=== PATIENT | male | born 1945 | race Caucasian/White ===

== ENCOUNTER 2019-04-30 01:27 | Inpatient (IN) | payer MEDICAID ==
[~2019-04-30] VITALS: Ht 185.4 cm; Wt 84.8 kg
--- NOTE | 2019-04-30 01:30 | NUR ---
PT LIZ FROM [facility] C/C LEFT LOWER LEG NONHEALING WOUND. PT HAS SOILED BANDAGE AROUND L LEG. PT AOX4. NAD NOTED. RESP EVEN AND UNLABORED. PT IS ON THE MONITOR IN BED 12. WILL CONTINUE TO MONITOR.
--- NOTE | 2019-04-30 01:51 | NUR ---
PT REFUSING TO HAVE IV PLACED AND BLOOD DRAWN. AWARE.
[2019-04-30] MEDS ORDERED: CLINDAMYCIN HCL 150 MG CAPSULE PO ONE ×2 (02:00→02:15)
--- NOTE | 2019-04-30 02:24 | NUR ---
CLINDAMYCIN 450MG UNAVAILABLE IN EMERGENCY DEPARTMENT OMNICELL. MEDICATION RECEIVED FROM MAYURI.
[2019-04-30] MEDS ORDERED: HYDROCODONE/APAP 5/325MG 1 EACH TABLET PO PRN (02:30)
[2019-04-30] MEDS ORDERED: Z GUARD REMEDY 2 OZ OINT TP PRN (02:30)
[2019-04-30] MEDS ORDERED: ZOLPIDEM TARTRATE 5 MG TABLET PO PRN (02:30)
[2019-04-30] MEDS ORDERED: MAG HYDROX/AL HYDROX/SIMETH 30 ML UDC PO PRN (02:30)
[2019-04-30] MEDS ORDERED: MAGNESIUM HYDROXIDE 30 ML UDC PO PRN (02:30)
[2019-04-30] MEDS ORDERED: MORPHINE SULFATE INJ 2 MG/ML DISP.SYRIN IV PRN (02:30)
[2019-04-30] MEDS ORDERED: ONDANSETRON HCL/PF 4 MG/2 ML VIAL IVP PRN (02:30)
[2019-04-30] MEDS ORDERED: ACETAMINOPHEN 325 MG TABLET PO PRN (02:30)
--- NOTE | 2019-04-30 02:47 | NUR ---
MED SURG BED ASSIGNMENT 328-2
[2019-04-30] MEDS ORDERED: VANCOMYCIN 1 GM in IV D5W 250ml IV SCH (03:30)
--- NOTE | 2019-04-30 03:56 | NUR ---
REPORT GIVEN TO CORTEZ LARA FOR RYAN
[2019-04-30 04:10] VITALS: BP 123/69
--- NOTE | 2019-04-30 04:10 | NUR ---
MS MOTORCYCLE MAKER NOTES Received patient from ER via [facility] accompanied by 1 ER staff. Admitted to MS 328-1 under the service of Dr. Torres, with diagnosis of LLE Open Wound and Cellulitis. Assisted patient to bed comfortably. Admission routine done. Patient's belongings inventory completed by the assigned ELECTRICAL PROSPECTING OPERATOR. Patient refused skin assessment, photo, and vital signs. Explained to patient the benefits of the interventions, patient verbalized understanding but insisted to refused any interventions at this time. Patient preferred to be on his own clothing, refused to removed the shoes. Patient has no IV line present and refused blood drawn from ER. Kept patient on bed in comfortable position, offered blanket, kept the room cool and patient was comfortably asleep. On fall precautions, call light within easy reach. Will re-offer interventions later. Will continue to monitor accordingly.
[2019-04-30 05:00] VITALS: BP 123/69
--- NOTE | 2019-04-30 07:01 | NUR ---
MS RN CLOSING NOTES Patient asleep on bed on RA, no sob/respiratory distress noted. Patient was able to change into gown, upper extrimities partially cleaned but patient refused the rest of the interventions including photo and skin assessments. Patient requested for snacks, provided. Kept on bed comfortable. Call light within easy reach. Endorsed to the next shift.
--- NOTE | 2019-04-30 07:30 | NUR ---
RN MS NOTES PT IN BED, AWAKE, ALERT AND ORIENTED, EATING BREAKFAST, OFFERED TO START AND IV LINE, PT REFUSED, EXPLAINED THE NEED FOR IT, STILL REFUSED, STILL REFUSING BODY CHECK AT THIS TIME, REFUSED VITAL SIGNS AND LAB DRAW, DR. JOHNSON INFORMED.
[2019-04-30 08:00] VITALS: BP 141/70
[2019-04-30] MEDS: NICOTINE PATCH (21MG) 21 MG PATCH.TD24 TD SCH (09:01)
[2019-04-30 10:25] LABS: BASOPHILS % (AUTO) 0.3 % (0.0-2.0); EOSINOPHILS % (AUTO) 0.8 % (0.0-6.0); HEMATOCRIT 37 % (39-51); HEMOGLOBIN 11.9 g/dL (13.5-17.5); LYMPHOCYTES # (AUTO) 1.6 /CMM (0.8-4.8); LYMPHOCYTES % (AUTO) 16.9 % (20.0-44.0); MEAN CORPUSCULAR HGB CONC 33 g/dl (31.0-36.0); MEAN CORPUSCULAR VOLUME 86 fL (80-96); MONOCYTES # (AUTO) 0.6 /CMM (0.1-1.30); MONOCYTES % (AUTO) 6.1 % (2.0-12.0); NEUTROPHILS # (AUTO) 7.3 /CMM (1.8-8.9); NEUTROPHILS % (AUTO) 75.9 % (43.0-81.0); PLATELET COUNT (AUTO) 221 /CMM (150-450); RED BLOOD CELL COUNT(AUTO) 4.23 MIL/uL (4.5-6.0); WHITE BLOOD COUNT (AUTO) 9.6 K/uL (4.3-11.0)
[2019-04-30 10:41] LABS: ALBUMIN 2.6 g/dL (3.4-5.0); BILIRUBIN,DIRECT 0.1 mg/dL (0.0-0.2); BILIRUBIN,TOTAL 0.2 mg/dL (0.2-1.0); PHOSPHORUS 3.2 mg/dL (2.5-4.9); TOTAL PROTEIN, SERUM 8.1 g/dL (6.4-8.2)
[2019-04-30 10:42] LABS: ALANINE AMINOTRANSFERASE 10 U/L (12-78); ALBUMIN 2.5 g/dL (3.4-5.0); ALKALINE PHOSPHATASE 74 U/L (46-116); ASPARTATE AMINOTRANSFERASE 13 U/L (15-37); BILIRUBIN,TOTAL 0.2 mg/dL (0.2-1.0); CALCIUM, SERUM 8.1 mg/dL (8.5-10.1); CARBON DIOXIDE 23 mmol/L (21-32); CHLORIDE 105 mmol/L (98-107); CREATININE 0.9 mg/dL (0.6-1.3); GLUCOSE 97 mg/dL (74-106); POTASSIUM 4.1 mmol/L (3.5-5.1); SODIUM SERUM 139 mmol/L (136-145); UREA NITROGEN, BLOOD 16 mg/dL (7-18)
[2019-04-30 11:17] LABS: THYROID STIMULATING HORMONE 0.969 uIU/mL (0.358-3.74)
--- NOTE | 2019-04-30 11:44 | NUR ---
RN MS NOTES PT ALSO AGREED TO TAKE PHOTOS OF HIS RIGHT LEG AND RIGHT ARM.
--- NOTE | 2019-04-30 11:44 | NUR ---
RN MS NOTES PT AGREED TO HAVE A SHOWER, AGREED FOR HIS LEFT LEG TO BE ASSESSED, AGREED FOR PHOTOS FOR THE LEFT LEG ONLY, REFUSED TO HAVE THE OTHER PARTS OF THE BODY CHECK.
--- NOTE | 2019-04-30 12:27 | NUR ---
RN MS NOTES PT ONLY COMPLETED PARTIAL DOPPLER OF LEFT LEG, PT REFUSED, STILL REFUSING IV INSERTION, DR. JOHNSON INFORMED.
[2019-04-30] MEDS: CEPHALEXIN MONOHYDRATE 250 MG CAPSULE PO SCH ×3 (12:32→21:16)
[2019-04-30] MEDS: SULFAMETH/TRIMETH 800/160 MG 1 UDTAB TABLET PO SCH ×2 (12:33→21:16)
--- NOTE | 2019-04-30 12:58 | NUR ---
RN MS NOTES PT IN BED, NO COMPLAINT AT THIS TIME, PT SEEN AND EXAMINED BY RADHA BEE, WOUND ORDERS RECEIVED, INITIAL WOUND TREATMENT AND DRESSING CHANGE DONE.
[2019-04-30 16:00] VITALS: BP 118/72
--- NOTE | 2019-04-30 18:14 | NUR ---
RN MS NOTES PT IN BED, ASLEEP, EASY TO AROUSE, ALERT AND VERBALLY RESPONSIVE, DENIES PAIN, NO SOB, TOLERATES CURRENT DIET, KEPT ON REMOVING LEFT LEG DRESSING, REFUSES DRESSING TO BE REINFORCED, STATED "GET OFF OF IT", PM MEDS GIVEN, ALL NEEDS ATTENDED.
--- NOTE | 2019-04-30 19:20 | NUR ---
RN OPEN NOTES RECEIVED PATIENT RESTING IN BED. A/OX3. NO SIGNS OF DISTRESS OR DISCOMFORT. BREATHING EVEN AND UNLABORED. PT STILL REFUSING IV ACCESS. CURRENTLY HAS ONLY MEPILEX ON LLE WOUND, OFFERED TO BANDAGE THE LEG AND PATIENT REFUSES, STATES "ITS ALREADY ON THERE". PATIENT ADVISED OF RISK AND BENEFITS. BED IN LOW LOCKED POSITION WITH SIDE RAILS X2. CALL LIGHT WITHIN REACH. WILL CONTINUE TO MONITOR. Addendum: 04/30/19 at 2226 by AISHA SAWYER RN ERROR: PT IS ALERT ONLY TO SELF. A/O X1. WHEN ASKED HIS DATE OF HE WOULD NOT RESPOND AND ASKED WHERE HE IS PT STATES "[facility]".
[2019-04-30 20:00] VITALS: BP 139/63
--- NOTE | 2019-05-01 07:33 | NUR ---
RN CLOSING NOTES PATIENT RESTING IN BED, EASILY AROUSABLE. A/OX1. NO SIGNS OF DISTRESS OR DISCOMFORT. BREATHING EVEN AND UNLABORED. PT STILL REFUSING IV ACCESS. PATIENT ADVISED OF RISK AND BENEFITS. ALL NEEDS MET. NO SIGNIFICANT CHANGE THROUGH THE NIGHT. BED IN LOW LOCKED POSITION WITH SIDE RAILS X2. CALL LIGHT WITHIN REACH. ENDORSED TO AM SHIFT FOR RYAN.
[2019-05-01 08:00] VITALS: BP 128/75
--- NOTE | 2019-05-01 08:00 | NUR ---
MS RN NOTES PATIENT IN BED RESTING NO SOB OR ACUTE DISTRESS NOTED. PATIENT ALERT, ORIENTED X 3. DENIES ANY PAIN OR DISCOMFORT. PATIENT NONE COMPLIANT WITH CARE. REFUSES IV ACCESS. AGREES TO TAKE ONLY PO ANTIBIOTICS. STATES TO LEAVE THE ROOM. WILL CONTINUE TO MONITOR.
[2019-05-01] MEDS: SULFAMETH/TRIMETH 800/160 MG 1 UDTAB TABLET PO SCH ×2 (08:53→20:15)
[2019-05-01] MEDS: CEPHALEXIN MONOHYDRATE 250 MG CAPSULE PO SCH ×4 (08:53→20:15)
[2019-05-01] MEDS: NICOTINE PATCH (21MG) 21 MG PATCH.TD24 TD SCH (08:55)
[2019-05-01 16:00] VITALS: BP 121/75
--- NOTE | 2019-05-01 16:00 | NUR ---
MS RN NOTES PATIENT REFUSED BLOOD TO BE DRAWN, ATTEMPTED TO DRAW LABS X3, PATIENT REFUSED MD MADE AWARE. LABS CANCELLED.
--- NOTE | 2019-05-01 18:40 | NUR ---
MS RN NOTES PATIENT IN BED RESTING NO SOB OR ACUTE DISTRESS NOTED. ALL DUE MEDICATIONS ADMINISTERED. ALL NEEDS MET THAT WAS ALLOWED BY PATIENT. PATIENT SELECTIVE WITH CARE. COOPERATIVE WITH MEDICATIONS. REFUSES WOUND CARE OR IV MEDICATIONS. WILL ENDORSE CARE TO PM SHIFT.
--- NOTE | 2019-05-01 19:15 | NUR ---
RN INITIAL NOTES: RECEIVED REPORT FROM OMA TORO. PT IN BED, AWAKE, A/O X2, PT PASSIVE NOT VERY COMMUNICATIVE, BUT ABLE TO SPEAK. DOESN'T INITIATE ANY INTERACTION AND WILL JUST LOOK AT YOU WHEN YOU ASK QUESTION, WILL ANSWER BY NODDING. MD AND ID AWARE OF PT REFUSING FOR LABS AND IV INSERTION. PT ON LOCAL WOUND CARE. SAFETY PRECAUTIONS FOR FALL INITIATED, CALL LIGHT IN REACH, WILL CONTINUE TO MONITOR.
[2019-05-01 20:00] VITALS: BP 128/71
--- NOTE | 2019-05-01 20:00 | NUR ---
RN NOTES: PT REFUSED TO CHECK TEMP, EDUCATION PROVIDED TO PT, PT STILL REFUSED.
[2019-05-01 20:16] VITALS: BP 128/71
--- NOTE | 2019-05-01 22:17 | NUR ---
RN NOTES: OFFERED EGG SAND WHICH AND CRANBERRY JUICE, PT CONSUMED 100%
--- NOTE | 2019-05-02 05:58 | NUR ---
rn notes: pt refused bed bath, refused linen change, refused wound care tx, refused blood draw. education provided to pt.
--- NOTE | 2019-05-02 06:53 | NUR ---
RN CLOSING NOTES: PT IN BED, REMAINS PASSIVE, REFUSING LABS AND IV, REFUSE TO CHECK TEMP. MD AWARE. RESPIRATIONS EVEN AND UNLABORED, DENIES ANY PAIN OR DISCOMFORT AT THIS TIME. SAFETY PRECAUTIONS FOR FALL REMAINS ENGAGED, CALL LIGHT IN REACH, WILL ENDORSE TO DAY RN FOR CONTINUITY OF CARE.
--- NOTE | 2019-05-02 07:47 | NUR ---
MS RN NOTES PATIENT IN BED SLEEPING. NO SOB OR ACUTE DISTRESS NOTED. BED IN LOW LOCKED POSITION, CALL LIGHT WITHIN REACH. PATIENT NON COMPLIANT WITH CARE. REFUSES IV ACCESS. WILL CONTINUE TO MONITOR.
[2019-05-02 07:58] LABS: CALCIUM, SERUM 8.4 mg/dL (8.5-10.1); CARBON DIOXIDE 25 mmol/L (21-32); CHLORIDE 103 mmol/L (98-107); CREATININE 0.8 mg/dL (0.6-1.3); GLUCOSE 95 mg/dL (74-106); POTASSIUM 4.6 mmol/L (3.5-5.1); SODIUM SERUM 137 mmol/L (136-145); UREA NITROGEN, BLOOD 13 mg/dL (7-18)
--- NOTE | 2019-05-02 08:21 | NUR ---
WOUND CARE CONSULT WOUND CARE RECEIVED CONSULT FOR LEFT LOWER EXTREMITY CELLULITIS. WOUND CARE WILL DEFER CONSULT AND TREATMENT PLANS TO PLASTIC SURGICAL TEAM WHO ARE CURRENTLY FOLLOWING THIS PATIENT. PATIENT WITH JANESSA AT 19, WILL SEE PRN.
[2019-05-02] MEDS: SULFAMETH/TRIMETH 800/160 MG 1 UDTAB TABLET PO SCH (08:22)
[2019-05-02] MEDS: CEPHALEXIN MONOHYDRATE 250 MG CAPSULE PO SCH ×4 (08:22→20:25)
[2019-05-02 08:24] VITALS: BP 119/66
[2019-05-02] MEDS: NICOTINE PATCH (21MG) 21 MG PATCH.TD24 TD SCH (09:00)
--- NOTE | 2019-05-02 11:32 | NUR ---
Social service consult requested by Dr. Tillman for homelessness. Pt. is a 73 year old male who was admitted to [facility] for cellulitis. SW met with pt. bedside. However, pt. is refusing to participate in the assessment and won't answer any questions. SW will attempt again at a later time.
[2019-05-02 16:00] VITALS: BP 106/63
[2019-05-02] MEDS: LACTOBACILLUS RHAMNOSUS GG 1 EACH CAP.SPRINK PO SCH (16:25)
--- NOTE | 2019-05-02 18:53 | NUR ---
RN MS NOTE PATIENT IN BED ALERT AND ORIENTED X4, AFEBRILE WITH NO S/S OF DISTRESS OBSERVED. NO COMPLAINTS OF PAIN/DISCOMFORT REPORTED. NO S/S OF SUICIDAL IDEATION SEEN. KEPT CLEAN AND DRY. NEEDS ATTENDED. ENDORSED ACCORDINGLY TO NOC SHIFT.
--- NOTE | 2019-05-02 19:40 | NUR ---
RN NOTES PATIENT IN BED, ALERT AND AWAKE, TRYING TO ENGAGE PATIENT TO TALK, NON-VERBAL, NOT IN APPARENT DISTRESS, ROOM AIR, WILL CONTINUE TO MONITOR FOR SAFETY AND BEHAVIOR
[2019-05-02 20:00] VITALS: BP 132/61
[2019-05-02 20:29] VITALS: BP 132/61
[2019-05-03 06:26] LABS: BASOPHILS # (AUTO) 0.1 /CMM (0.0-0.2); EOSINOPHILS % (AUTO) 1.2 % (0.0-6.0); HEMATOCRIT 40 % (39-51); HEMOGLOBIN 13.5 g/dL (13.5-17.5); LYMPHOCYTES # (AUTO) 1.5 /CMM (0.8-4.8); LYMPHOCYTES % (AUTO) 23.3 % (20.0-44.0); MEAN CORPUSCULAR HGB CONC 34 g/dl (31.0-36.0); MEAN CORPUSCULAR VOLUME 85 fL (80-96); MONOCYTES # (AUTO) 0.4 /CMM (0.1-1.30); MONOCYTES % (AUTO) 6.8 % (2.0-12.0); NEUTROPHILS # (AUTO) 4.3 /CMM (1.8-8.9); NEUTROPHILS % (AUTO) 67.7 % (43.0-81.0); PLATELET COUNT (AUTO) 246 /CMM (150-450); RED BLOOD CELL COUNT(AUTO) 4.76 MIL/uL (4.5-6.0); WHITE BLOOD COUNT (AUTO) 6.3 K/uL (4.3-11.0)
--- NOTE | 2019-05-03 06:33 | NUR ---
RN NOTES, PM SHIFT PATIENT IS ALERT AND AWAKE, NOT IN APPARENT DISTRESS, NON VERBAL, ABLE TO TALK, ONLY SELECTIVE, SLEPT DURING SHIFT, NO CHANGE OF CONDITION, NO COMPLAIN OF PAIN. REFUSED BED LINEN CHANGE, AGGRESSIVE AT TIMES, URINATING ON FLOOR, OWN SWEATER SOILED WITH URINE, PATIENT INSIST TO WEAR IT, CONTINUE KEFLEX PO, FOLLOW UP BLOOD CULTURE, DUPLEX VENOUS OF LEFT LOWER EXTREMITY RESULT, NO DVT.
[2019-05-03 06:49] LABS: CALCIUM, SERUM 8.6 mg/dL (8.5-10.1); CARBON DIOXIDE 26 mmol/L (21-32); CHLORIDE 103 mmol/L (98-107); CREATININE 0.8 mg/dL (0.6-1.3); GLUCOSE 92 mg/dL (74-106); MAGNESIUM 2.2 mg/dL (1.8-2.4); PHOSPHORUS 4.1 mg/dL (2.5-4.9); POTASSIUM 4.3 mmol/L (3.5-5.1); SODIUM SERUM 137 mmol/L (136-145); UREA NITROGEN, BLOOD 13 mg/dL (7-18)
--- NOTE | 2019-05-03 07:45 | NUR ---
MS RN OPENING NOTES RECEIVED PT LAYING IN BED, RESTING COMFORTABLY. PT IS RESPONSIVE, APPEARS TO BE ISOLATIVE, HIDING UNDER HIS SWEATER. RESPIRATIONS ARE EVEN AND UNLABORED, NOT IN ANY ACUTE DISTRESS NOTED. NO FACIAL GRIMACING OR MOANING. NO IV ACCESS. SAFETY MEASURES ARE IN PLACE. INSTRUCTED PT TO USE CALL LIGHT WHEN ASSISTANCE IS NEEDED, CALL LIGHT IS LEFT WITHIN REACH. WILL MONITOR THROUGHOUT SHIFT FOR CONTINUITY OF CARE.
[2019-05-03] MEDS: LACTOBACILLUS RHAMNOSUS GG 1 EACH CAP.SPRINK PO SCH ×2 (09:00→16:31)
[2019-05-03] MEDS: NICOTINE PATCH (21MG) 21 MG PATCH.TD24 TD SCH (09:00)
[2019-05-03] MEDS: CEPHALEXIN MONOHYDRATE 250 MG CAPSULE PO SCH ×4 (09:13→21:26)
--- NOTE | 2019-05-03 09:14 | NUR ---
MS RN NOTES-- PT COMPLIANT WITH KEFLEX, HOWEVER REFUSED TO TAKE CULTURELLE AND NICOTINE PATCH. EXPLAINED THE RISKS AND BENEFITS, PT STATED "LEAVE ME ALONE."
--- NOTE | 2019-05-03 11:25 | NUR ---
MS RN NOTES-- PT REFUSED DRESSING CHANGE TO LEFT FOOT. WILL TRY AGAIN LATER.
--- NOTE | 2019-05-03 15:39 | NUR ---
MS RN NOTES-- INFORMED PT THAT DRESSING CHANGE NEEDS TO BE DONE TO LLE. PT REFUSED. EXPLAINED THE IMPORTANCE TO CHANGE IT. PT STILL REFUSED. WILL TRY AGAIN LATER.
--- NOTE | 2019-05-03 18:40 | NUR ---
MS RN CLOSING NOTES NEEDS ANTICIPATED. PT CONTINUES TO APPEAR ISOLATIVE. PT IS ALERT AND RESPONSIVE. RESPIRATIONS ARE EVEN AND UNLABORED, NOT IN ANY ACUTE DISTRESS NOTED. NO SHOWS OF FACIAL GRIMACING OR MOANING NOTED. NO IV ACCESS. PT AGAIN REFUSED DRESSING CHANGE TO LLE, EXPLAINED THE IMPORTANCE AND STILL REFUSED. SAFETY MEASURES ARE IN PLACE. CALL LIGHT IS LEFT WITHIN REACH. WILL ENDORSE TO NEXT SHIFT FOR CONTINUTY OF CARE.
--- NOTE | 2019-05-03 19:50 | NUR ---
RN OPENING NOTES RECEIVED REPORT FROM PENNYAZARBEN PALOMINO. FOUND Pt RESTING IN. NO S/S OF ACUTE DISTRESS OR SOB NOTED. Pt IS A/OX2, RARELY SPEAKS. HAS BEEN NONCOMPLIANT WITH DRESSING CHANGES, AND LINEN CHANGES. Pt REFUSES IV ACCESS, MD AWARE. ONLY PO MEDS ORDERED. SAFETY MEASURES IN PLACE. BED LOW, LOCKED, HOB ELEVATED, SIDE RAILS UP, CALL LIGHT AND BEDSIDE TABLE WITHIN REACH. WILL CONTINUE TO MONITOR Pt's CONDITION AND SAFETY THROUGHOUT THE NIGHT.
[2019-05-03 20:00] VITALS: BP 115/69
--- NOTE | 2019-05-03 23:00 | NUR ---
RN NOTES Pt REFUSED FOR DRESSING CHANGE AND FOR LINENS TO BE CHANGED.
--- NOTE | 2019-05-04 05:30 | NUR ---
RN NOTES Pt REFUSED AM LAB DRAWS THIS MORNING.
--- NOTE | 2019-05-04 07:00 | NUR ---
RN CLOSING NOTES NO SIGNIFICANT CHANGES IN Pt's CONDITION. Pt REMAINS STABLE PER BASELINE AT THIS TIME. NO S/S OF ACUTE DISTRESS OR SOB NOTED DURING THE NIGHT. Pt IS RESTING IN BED WITH UNLABORED RESPIRATIONS, WITH EQUAL CHEST RISE AND FALL. Pt ALLOWED FOR LINENS TO BE FINALLY CHANGED. Pt DID NOT ALLOW FOR DRESSING CHANGE, BUT ALLOWED FOR MEPILEX TO BE PLACED. SAFETY MEASURES IN PLACE. WILL ENDORSE TO DAYSHIFT RN FOR Pt's RYAN.
--- NOTE | 2019-05-04 07:53 | NUR ---
MS RN OPENING NOTES RECEIVED PT LAYING IN BED, RESTING COMFORTABLY. PT IS RESPONSIVE, APPEARS TO BE ISOLATIVE. RESPIRATIONS ARE EVEN AND UNLABORED, NOT IN ANY ACUTE DISTRESS NOTED. NO FACIAL GRIMACING OR MOANING. NO IV ACCESS. SAFETY MEASURES ARE IN PLACE. INSTRUCTED PT TO USE CALL LIGHT WHEN ASSISTANCE IS NEEDED, CALL LIGHT IS LEFT WITHIN REACH. PT REFUSED VITAL SIGNS, ATTEMPTED X2, PT STATED "LEAVE ME ALONE." WILL MONITOR THROUGHOUT SHIFT FOR CONTINUITY OF CARE.
[2019-05-04] MEDS: CEPHALEXIN MONOHYDRATE 250 MG CAPSULE PO SCH ×4 (08:24→20:50)
[2019-05-04] MEDS: LACTOBACILLUS RHAMNOSUS GG 1 EACH CAP.SPRINK PO SCH ×2 (08:24→16:10)
[2019-05-04] MEDS: NICOTINE PATCH (21MG) 21 MG PATCH.TD24 TD SCH (08:26)
--- NOTE | 2019-05-04 10:21 | NUR ---
MS TORO NOTES-- PT REFUSED LABS THIS AM. EXPLAINED THE IMPORTANCE OF LAB DRAW, PT CONTINUES TO REFUSE. Addendum: 05/04/19 at 1105 by YOHAN BOLAÑOS RN DR. JEROME MADE AWARE.
--- NOTE | 2019-05-04 12:59 | NUR ---
MS RN NOTES-- PT REFUSED WOUND TREATMENT. INFORMED PT THE IMPORTANCE OF CHANGING WOUND DRESSING, PT STILL REFUSED. WILL TRY AGAIN LATER.
[2019-05-04 16:00] VITALS: BP 115/70
--- NOTE | 2019-05-04 18:40 | NUR ---
MS RN CLOSING NOTES NEEDS ANTICIPATED. PT CONTINUES TO APPEAR ISOLATIVE. PT IS ALERT AND RESPONSIVE. RESPIRATIONS ARE EVEN AND UNLABORED, NOT IN ANY ACUTE DISTRESS NOTED. NO SHOWS OF FACIAL GRIMACING OR MOANING NOTED. NO IV ACCESS. DRESSING CHANGE DONE TO LLE, PT TOLERATED WELL. SAFETY MEASURES ARE IN PLACE. CALL LIGHT IS LEFT WITHIN REACH. WILL ENDORSE TO NEXT SHIFT FOR CONTINUTY OF CARE.
--- NOTE | 2019-05-04 19:30 | NUR ---
MS RN NOTE RECEIVED PATIENT IN BED. A/O X1. PATIENT TOLERATING ROOM AIR. RESPIRATIONS ARE EVEN AND UNLABORED. NO SIGNS OF SOB NOTED. DENIES PAIN AT THIS TIME. NO IV ACCESS AT THIS TIME. BED IS LOW AND LOCKED, CALL LIGHT WITHIN REACH. WILL CONTINUE TO MONITOR.
[2019-05-04 20:00] VITALS: BP 150/77
--- NOTE | 2019-05-05 06:56 | NUR ---
MS RN CLOSING NOTE PATIENT IS RESTING IN BED. A/O X1. TOLERATING ROOM AIR. RESPIRATIONS ARE EVEN AND UNLABORED. NO SIGNS OF SOB. DENIES PAIN AT THIS TIME. NO IV ACCESS. SKIN MAINTAINS CLEAN AND DRY. PATIENT IN NO APPARENT DISTRESS. BED IS LOW AND LOCKED SIDE RAILS UP X2. CALL LIGHT WITHIN REACH. WILL ENDORSE TO NEXT SHIFT FOR RYAN.
--- NOTE | 2019-05-05 07:43 | NUR ---
M/S RN NOTES PATIENT RESTING, LYING IN BED, ALERT AND ORIENTED X2, NO RESPIRATORY DISTRESS NOTED, NO COMPLAINT OF PAIN AT THIS TIME. PATIENT'S NEEDS ATTENDED. BED ON LOWEST LOCKED POSITION, CALL LIGHT WITHIN REACH. WILL CONTINUE TO MONITOR.
[2019-05-05 08:13] VITALS: BP 135/71
[2019-05-05] MEDS: CEPHALEXIN MONOHYDRATE 250 MG CAPSULE PO SCH ×4 (08:56→20:35)
[2019-05-05] MEDS: NICOTINE PATCH (21MG) 21 MG PATCH.TD24 TD SCH (08:56)
[2019-05-05] MEDS: LACTOBACILLUS RHAMNOSUS GG 1 EACH CAP.SPRINK PO SCH ×2 (08:56→17:08)
--- NOTE | 2019-05-05 10:30 | NUR ---
M/S RN NOTES PATIENT REFUSED WOUND TX PRESCRIBED. ASKED PATIENT TWICE AND GAVE THE RISKS AND BENEFITS AND STILL REFUSED. PATIENT ALSO REFUSED FOR BLOOD DRAW TO BE TAKEN X2 THIS MORNING.
[2019-05-05] MEDS ORDERED: QUETIAPINE FUMARATE 25 MG TABLET PO PRN (13:30)
[2019-05-05 16:00] VITALS: BP 123/75
--- NOTE | 2019-05-05 18:23 | NUR ---
M/S RN NOTES PATIENT AWAKE SITTING IN BED EATING. PATIENT IN NO RESPIRATORY DISTRESS, NO C/O PAIN AT THIS TIME. PATIENT'S NEEDS ATTENDED. BED ON LOWEST LOCKED POSITION, CALL LIGHT WITHIN REACH. WILL ENDORSE TO ONCOMING NURSE.
--- NOTE | 2019-05-05 19:30 | NUR ---
MS RN OPENING NOTE RECEIVED PATIENT IN BED. A/O X2. TOLERATING ROOM AIR. RESPIRATIONS ARE EVEN AND UNLABORED. NO SINGS OF SOB. DENIES PAIN AT THIS TIME. NO IV ACCESS. BED IS LOW AND LOCKED. CALL LIGHT WITHIN REACH. WILL CONTINUE TO MONITOR.
[2019-05-05 20:00] VITALS: BP 105/55
--- NOTE | 2019-05-06 06:17 | NUR ---
MS RN NOTE INFORMED BY INSPECTOR TOYS THAT PATIENT REFUSED LABS THIS AM.
--- NOTE | 2019-05-06 06:33 | NUR ---
MS RN CLOSING NOTE PATIENT IS RESTING IN BED. A/O X2. TOLERATING ROOM AIR. RESPIRATIONS ARE EVEN AND UNLABORED. NO S/S OF SOB. DENIES PAIN AT THIS TIME. NO IV ACCESS. ALL NURSING NEEDS MET. NO APPARENT DISTRESS AT THIS TIME. BED IS LOW AND LOCKED, SIDE RAILS UP X2. CALL LIGHT WITHIN REACH. WILL ENDORSE TO NEXT SHIFT FOR RYAN.
--- NOTE | 2019-05-06 06:45 | NUR ---
RN NOTES PT. STILL REFUSING TO HAVE MORNING CARE...EXPLAINED THE BENEFITS OF GETTING MORNING CARE BUT PT. STILL REFUSING
--- NOTE | 2019-05-06 07:45 | NUR ---
M/S RN NOTES PATIENT AWAKE, LYING IN BED, NO RESPIRATORY DISTRESS NOTED, NO COMPLAINT OF PAIN AT THIS TIME. PATIENT'S NEEDS ATTENDED. BED ON LOWEST LOCKED POSITION, CALL LIGHT WITHIN REACH. WILL CONTINUE TO MONITOR.
[2019-05-06 08:00] VITALS: BP 139/76
[2019-05-06] MEDS: CEPHALEXIN MONOHYDRATE 250 MG CAPSULE PO SCH ×4 (08:29→20:44)
[2019-05-06] MEDS: LACTOBACILLUS RHAMNOSUS GG 1 EACH CAP.SPRINK PO SCH ×2 (08:29→17:53)
[2019-05-06] MEDS: NICOTINE PATCH (21MG) 21 MG PATCH.TD24 TD SCH (08:43)
[2019-05-06 11:33] LABS: CALCIUM, SERUM 8.4 mg/dL (8.5-10.1); CARBON DIOXIDE 26 mmol/L (21-32); CHLORIDE 102 mmol/L (98-107); CREATININE 0.8 mg/dL (0.6-1.3); GLUCOSE 86 mg/dL (74-106); POTASSIUM 4.1 mmol/L (3.5-5.1); SODIUM SERUM 138 mmol/L (136-145); UREA NITROGEN, BLOOD 17 mg/dL (7-18)
[2019-05-06 15:49] VITALS: BP 122/73
--- NOTE | 2019-05-06 18:25 | NUR ---
M/S RN NOTES PATIENT AWAKE, LYING IN BED. PATIENT WITH NO RESPIRATORY DISTRESS, NO C/O PAIN AT THIS TIME. PATIENT REFUSED WOUND TX TODAY WELL PT EVAL. PATIENT'S NEEDS ATTENDED. BED ON LOWEST LOCKED POSITION, CALL LIGHT WITHIN REACH. WILL ENDORSE TO ONCOMING NURSE.
--- NOTE | 2019-05-06 19:29 | NUR ---
RN NOTES: RECEIVED AWAKE ON BED, LYING COMFORTABLY NO PAIN OR DISCOMFORT, A/OX2,ORIENTED TO UNIT AND STAFF,ON ROOM AIR , NO PAIN OR DISCOMFORT. FALL, SAFETY AND ASPIRATION PRECAUTION OBSERVED,CALL LIGHT WITHIN EASY REACH.
[2019-05-06 20:00] VITALS: BP 128/70
--- NOTE | 2019-05-06 21:33 | NUR ---
RN NOTES: WHILE DOING ROUNDS PATIENT ASSESSED FOR PAIN OR DISCOMFORT HE SAID NO, HE VERBALIZED HE "I CANNOT SLEEP" HE ASK IF HE HAS SOMETHING FOR SLEEP, OFFERED PRN FOR SLEEP, HE AGREED.
--- NOTE | 2019-05-06 23:25 | NUR ---
RN NOTES: ABLE TO SLEEP AND REST, KEPT ON CLOSE WATCH.CALL LIGHT WITHIN EASY REACH.
--- NOTE | 2019-05-06 23:40 | NUR ---
RN NOTES: AT 2215 AWAKE, ASSISTED TO THE BATHROOM, AMBULATE WITH SUPERVISION, NO PAIN OR DISCOMFORT, [id number]% RA, PERIODS OF FEELING NAUSEATED, SHE VOMITED ONCE AROUND 70CC OF CLEAR LIQUID, OFFERED PRN MEDICATION, SHE WAS RELIEVED WITH SIPS OF WARM TEA. KEPT IN COMFORTABLE POSITION,AT 2300 ABLE TO GO BACK TO SLEEP, IVF ONGOING. CALL LIGHT KEPT WITHIN EASY REACH. Addendum: 05/06/19 at 7257 by NASH BONE RN CHARTING CORRECTION ERROR : WRONG ENTRY OF CHARTING.
--- NOTE | 2019-05-07 04:54 | NUR ---
RN NOTES: AT 2300 ABLE TO SLEEP AT SHORT INTERVALS, AT 0200 AWAKE, AMBULATE TO THE BATHROOM, NO PAIN OR DISCOMFORT, KEPT COMFORTABLE IN BED,CALLS LIGHT KEPT WITHIN EASY REACH.
--- NOTE | 2019-05-07 06:37 | NUR ---
RN NOTES: AWAKE WATCHING TV, EXPLAINED TO HIM WE NEED TO DO HIS DRESSING ON THE LLE, HE AGREED, DRESSING DONE ON THE LLE VENOUS ULCER, TOLERATED WELL.NO PAIN OR DISCOMFORT.NO LABS FOR TODAY, ENDORSED FOR CONTINUITY OF CARE.
--- NOTE | 2019-05-07 07:19 | NUR ---
RN OPENING NOTE PT WAS RECEIVED IN BED AT LOWEST AND LOCKED POSITION WITH SIDE RAILS UP X2, A/O X2-3 BREATHING EVEN AND UNLABORED ON RA, NO S/S OF ANY DISTRESS OR PAIN NOTED AT THIS TIME, PT CURRENTLY HAS NO IV AND PER NIGHT RN MD IS AWARE. AWAITING FOR PLACEMENT, NIGHT RN ABLE TO DO DRESSING ON PT LLE WOUND, SAFETY PRECAUTIONS IN PLACE, CALL LIGHT WITHIN REACH, WILL MONITOR ACCORDINGLY
[2019-05-07 08:00] VITALS: BP 141/80
[2019-05-07] MEDS: CEPHALEXIN MONOHYDRATE 250 MG CAPSULE PO SCH ×2 (08:48→12:08)
[2019-05-07] MEDS: LACTOBACILLUS RHAMNOSUS GG 1 EACH CAP.SPRINK PO SCH (08:48)
[2019-05-07] MEDS: NICOTINE PATCH (21MG) 21 MG PATCH.TD24 TD SCH (08:48)
[2019-05-07] MEDS ORDERED: CEPH-570 PO (12:13)
[2019-05-07] MEDS ORDERED: QUET25TA PO (12:13)
--- NOTE | 2019-05-07 13:19 | NUR ---
RN NOTE ATTEMPTED TO TAKE PHOTOS OF PT WOUNDS BUT PT REFUSED STATING A LADY HAD ALREADY TAKEN THEM BEFORE. INFORMED ABOUT THOSE PHOTOS BEING DONE EARLIER THIS WEEK AND EDUCATED ABOUT THEIR PURPOSE BUT HE REFUSED.
--- NOTE | 2019-05-07 14:17 | NUR ---
DISCHARGE NOTE PT WAS D/C AT THIS TIME IN MEDICALLY STABLE CONDITION TO BOARD AND CARE WITH MEDICAL TRANSPORT. ALL IV AND ID BAND WERE REMOVED. PT REFUSED FOR PHOTOS OF SKIN TO BE TAKEN. ALL D/C PAPERWORK, EXITCARE, AND BELONGINGS LIST WERE SIGNED, DISCUSSED, AND HANDED TO THE PT ALONG WITH PRESCRIPTIONS. WOUND DRESSING CHANGE WAS DONE. ALL NEEDS WERE ATTENDED TO DURING HIS STAY. PT LEFT AT THIS TIME IN MEDICALLY STABLE CONDITION
== END 2019-05-07 14:15 | disposition home or self-care (01) | DRG 603 ==
LOC: ER 01:33 → MED 02:56
PROVIDERS: ADMIT Nurse Practitioner Acute Care; ATTEND Student in an Organized Health Care Education/Training Program
DX: L03.116 Cellulitis of left lower limb (principal); E44.0 Moderate protein-calorie malnutrition; I87.312 Chronic venous hypertension (idiopathic) with ulcer of left lower extremity; L97.929 Non-pressure chronic ulcer of unspecified part of left lower leg with unspecified severity; D63.8 Anemia in other chronic diseases classified elsewhere; I73.9 Peripheral vascular disease, unspecified; E88.09 Other disorders of plasma-protein metabolism, not elsewhere classified; Z68.24 Body mass index [BMI] 24.0-24.9, adult; Z59.0 Homelessness; B95.62 Methicillin resistant Staphylococcus aureus infection as the cause of diseases classified elsewhere; F20.9 Schizophrenia, unspecified; F29 Unspecified psychosis not due to a substance or known physiological condition; Z91.19 Patient's noncompliance with other medical treatment and regimen; F17.200 Nicotine dependence, unspecified, uncomplicated
CPT/HCPCS: 36415; 80048-TC; 80053-TC; 80061-TC; 80076-TC; 83735-TC; 84100-TC; 84443-TC; 85025-TC; 87040-TC; 87070-TC; 87081-TC; 93926-TC; 93971-TC; A6403; G0378; J3370; J7060